=== PATIENT | female | born 1995 | race Asian ===

== ENCOUNTER 2023-11-14 14:52 | Outpatient (REF) | payer MEDICAID, SELFPAY ==
--- NOTE | ~2023-11-14 | US_ITS ---
EXAMINATION: US DIAGNOSTIC ULTRASOUND BREAST, LEFT CLINICAL INFORMATION: 28-year-old female complaining of lateral inferior left breast pain x2 weeks. No significant family history of breast CA. COMPARISON: None available. TECHNIQUE: Ultrasound of the left breast was performed with real-time george scale imaging and color Doppler. Attention to the lateral inferior left breast spanning 2:00 to 8:00 was given in the region of breast pain. FINDINGS: There is no focal suspicious finding. There is no solid mass, architectural abnormality, duct ectasia, or edema in the soft tissue planes. There are no cystic abnormalities. No sonographic correlate to the region left of breast pain. Results are provided to the patient at time of visit by the technologist. US/US breast LT limited mamm only IMPRESSION: No findings suspicious for malignancy. No sonographic correlate to the region of lateral inferior breast pain. Only normal dense fibroglandular tissue is identified. Recommend clinical management. ASSESSMENT: BI-RADS 1 - Negative RECOMMENDATION: 1. Patient should be managed based on the clinical impression. This patient's information was entered into a reminder system with a target due date for their next mammogram.
== END 2023-11-14 14:53 | disposition home or self-care (01) ==
LOC: HO.MAMMO 14:52
PROVIDERS: PCP Pediatrics; Visit Provider Pediatrics
DX: N64.4 Mastodynia (principal)
CPT/HCPCS: 76642

== ENCOUNTER → 2023-11-14 15:00 | Outpatient (BNV) | payer MEDICAID, SELFPAY | PROVIDERS: PCP Pediatrics; Visit Provider Radiology Diagnostic Radiology | DX: N64.4 Mastodynia (principal) | CPT/HCPCS: 76642 ==

== ENCOUNTER 2024-05-18 21:32 | Emergency (ER) | payer MEDICAID, SELFPAY ==
[2024-05-18 22:00] VITALS: BP 104/65; PULSE 82; RESP 14; TEMP 36.8; O2SAT 99; BMI 25.0
[2024-05-18] MEDS: Ibuprofen 600 MG TABLET PO (22:27)
--- NOTE | 2024-05-18 22:29 | ED.EAR ---
HPI - Ear Problem General Chief complaint: Ear Problems Stated complaint: R ear pain, antibiotic not working Time Seen by Provider: 05/18/24 22:23 Source: patient Mode of arrival: ambulatory Limitations: no limitations History of Present Illness ED Provider: Dr. Chely Martinez HPI Narrative: Patient comes to the emergency room complaining of right-sided ear pain. Patient states that she has been taking amoxicillin for almost a week and she is still having discharge and pain. Patient denies fever chills. Patient denies hearing loss. Patient denies swimming. Related Data Previous Rx's ?Medication ?Instructions ?Recorded Lactobacillus rhamnosus GG 15 1 cap PO DAILY #20 caps 05/18/24 billion cell sprinkle capsule (Culturelle) amoxicillin 500 mg-potassium 1 tab PO TID 10 days #30 tabs 05/18/24 clavulanate 125 mg tablet (Augmentin) Allergies Allergy/AdvReac Type Severity Reaction Status Date / Time No Known Allergies Allergy Verified 05/18/24 22:03 [No Known Allergies*] Review of Systems Review of Systems: Constitutional : No Weight loss, No Fever, No Chills, No Night Sweats, No Fatigue, No Malaise ENT/Mouth : No Hearing loss complaining of right-sided Ear Pain with discharge, No Nasal Congestion, No Sinus Pain, No Hoarseness, No sore throat, No Rhinorrhea, No Swallowing Difficulty Eyes: No Eye Pain, No Swelling, No Redness, No Foreign Body, No Discharge, No Vision Changes Cardiovascular : No Chest Pain, No SOB, No Dyspnea on Exertion, No Orthopnea, No Edema, No Palpitations Respiratory : No Cough, No Sputum, No Wheezing, No Smoke Exposure, No Dyspnea Gastrointestinal : No Nausea, No Vomiting, No Diarrhea, No Constipation, No abdominal Pain, No Hematochezia, No Melena Genitourinary : no irregular bleeding, No Dysuria, No Urinary Frequency, No Hematuria, No Urinary Incontinence, No Urgency, No Flank Pain, No Urinary Flow Changes, No Hesitancy Musculoskeletal : No joint pain, No Myalgias, No Joint Swelling Skin : No Skin Lesions, No rash Neuro : No Weakness, No Numbness, No Paresthesias, No Loss of Consciousness, No Dizziness, No Headache Psych : No Anxiety/Panic, No Depression, No SI/HI/AH/VH, No Social Issues, Heme/Lymph: No Bruising, No Bleeding,No Lymphadenopathy Endocrine : No Polyuria, No Polydipsia, No Temperature Intolerance [facility] Social History Social History (System 11/08/23 @ 12:22 by Jelly Conner) Advance Directives: No Advance Directives Information Provided: No Do you have a plan to hurt others: No Plan Physical Exam Vital Signs: Vital Signs: Last Vital Signs Temp 98.3 F 05/18/24 22:00 Pulse 82 05/18/24 22:00 Resp 14 05/18/24 22:00 BP 104/65 05/18/24 22:00 Pulse Ox 99 05/18/24 22:00 O2 Del Method Room Air 05/18/24 22:00 BMI result Body Mass Index 25.0 Const: Other: Appearance: Alert. Oriented X3. No acute distress. Well-appearing Eyes: Pupils equal, round and reactive to light. ENT: Pharynx normal. There is discharge and erythema in the right middle ear, tympanic membrane is not perforated. No mastoid bone tenderness bilaterally Neck: Normal inspection. Neck supple. No lymph nodes noted. No crepitus CVS: Normal heart rate and rhythm. Pulses normal. Normal S1 and S2 Respiratory: No respiratory distress. Breath sounds normal. No Wheezing. No rales Abdomen: Soft and nontender. No rigidity. No distention. Skin: Skin warm and dry. Normal skin color. Normal skin turgor. Extremities: No lower extremity edema. No Lacerations. No Rash Neuro: Oriented X 3. No motor deficit. No sensory deficit. Moving all extremities. No slurred speech. CN 2 through 12 grossly intact Psych: calm, cooperative, normal affect Course Course Course Narrative: I discussed with the patient that the best next step is to change her antibiotic from amoxicillin to Augmentin. Patient no mastoid bone tenderness. No fever chills. Patient declined IM medication for pain. Medical Decision Making Medical Decision Making MDM Narrative: I discussed with the patient that she has still otitis media, 1st dose of Augmentin given in the ED.+ Also, probiotics have been sent to the patient's pharmacy since she is going to be on prolonged treatment with antibiotics. Differential Diagnosis Differential Diagnoses: The differential diagnosis associated with the presentation includes (Otitis media, tympanic membrane rupture, otitis externa, mastoiditis) Discharge Plan Discharge Clinical Impression: Otitis media Patient Disposition: Home, Self-Care Instructions: Ear Infection (ED) Additional Instructions: Please follow-up with your primary care physician tomorrow. If you have any worsening or new symptoms, please return to the emergency room or call 911 Prescriptions: New amoxicillin-pot clavulanate [Augmentin] 500-125 mg tablet 1 tab PO TID 10 Days Qty: 30 0RF Culturelle 15 billion cell capsule, sprinkle 1 cap PO DAILY Qty: 20 0RF Print Language: Sammarinese
[2024-05-18] MEDS: Amoxicillin/Potassium Clav 875 MG TABLET PO (22:30)
[2024-05-18 23:07] VITALS: BP 104/65; PULSE 82; RESP 14; TEMP 36.8; O2SAT 99
== END 2024-05-18 23:07 | disposition home or self-care (01) ==
PROVIDERS: Emergency Provider Emergency Medicine; PCP Pediatrics
DX: H66.91 Otitis media, unspecified, right ear (principal); H92.01 Otalgia, right ear
CPT/HCPCS: 99283

== ENCOUNTER 2024-05-23 13:26 | Emergency (ER) | payer MEDICAID, SELFPAY ==
[2024-05-23 13:35] VITALS: BP 132/90; PULSE 80; RESP 16; TEMP 36.8; O2SAT 99; BMI 25.3
--- NOTE | 2024-05-23 13:36 | ED_ITS ---
HPI - General Adult General Chief complaint: Ear Problems Stated complaint: R Ear Pain Related Data Previous Rx's ?Medication ?Instructions ?Recorded Lactobacillus rhamnosus GG 15 1 cap PO DAILY #20 caps 05/18/24 billion cell sprinkle capsule (Culturelle) amoxicillin 500 mg-potassium 1 tab PO TID 10 days #30 tabs 05/18/24 clavulanate 125 mg tablet (Augmentin) Allergies Allergy/AdvReac Type Severity Reaction Status Date / Time No Known Allergies Allergy Verified 05/23/24 13:37 [No Known Allergies*] [facility] Social History Social History (System 11/08/23 @ 12:22 by Jelly Conner) Advance Directives: No Advance Directives Information Provided: No Do you have a plan to hurt others: No Plan Physical Exam ED Vital Signs: BMI result Body Mass Index 25.3 Course Course Course Narrative: This is a rapid medical exam performed by Sophia Courtney NP: Additional HPI, ROS, PE not included below will be deferred to primary provider. Patient is a 28-year-old female presenting to the ED with complaint of ongoing right ear pain and discharge. She was started on amoxicillin at urgent care and sxs did not improve. Seen here on 05/18 and started on Augmentin. States pain is still 10/10 at times. Discharge Plan Discharge Clinical Impression: Ear pain, right Patient Disposition: Left W/O Completing Treatment Prescriptions: No Action amoxicillin-pot clavulanate [Augmentin] 500-125 mg tablet 1 tab PO TID 10 Days Qty: 30 0RF Culturelle 15 billion cell capsule, sprinkle 1 cap PO DAILY Qty: 20 0RF Discharge Date/Time: 05/23/24 17:13
--- NOTE | 2024-05-23 16:45 | PC.NURSE ---
pt left the ED with their family to go a restaurant to get pizza. they then called the ED asking if their name had been called so they could return to be seen. this was 1 of family of 3 that did this. they were told they would have to check back in as they had left the facility.
== END 2024-05-23 17:13 | disposition left against medical advice (07) ==
PROVIDERS: Emergency Provider Emergency Medicine
DX: H92.01 Otalgia, right ear (principal)
CPT/HCPCS: 99281; 99283

== ENCOUNTER 2024-06-15 18:12 | Emergency (ER) | payer OTHER, SELFPAY ==
[2024-06-15 19:02] VITALS: BP 107/72; PULSE 92; RESP 16; TEMP 36.7; O2SAT 100; BMI 24.8
--- NOTE | 2024-06-15 19:06 | ED_ITS ---
HPI - General Adult General Chief complaint: Ear Problems Stated complaint: Ear pain/sent from Urgent care Related Data Previous Rx's ?Medication ?Instructions ?Recorded Lactobacillus rhamnosus GG 15 1 cap PO DAILY #20 caps 05/18/24 billion cell sprinkle capsule (Culturelle) amoxicillin 500 mg-potassium 1 tab PO TID 10 days #30 tabs 05/18/24 clavulanate 125 mg tablet (Augmentin) Allergies Allergy/AdvReac Type Severity Reaction Status Date / Time No Known Allergies Allergy Verified 06/15/24 19:05 [No Known Allergies*] [facility] Social History Social History (System 11/08/23 @ 12:22 by Jelly Conner) Advance Directives: No Advance Directives Information Provided: No Do you have a plan to hurt others: No Plan Physical Exam ED Vital Signs: BMI result Body Mass Index 24.8 Course Course Course Narrative: RME, this is a rapid medical exam performed by Carlin Rizvi please refer to primary provider for complete H&P- 28-year-old female presents for evaluation of right ear pain. She presents complaining of blood draining from her right ear. She was recently treated for otitis media with Augmentin. She was also given steroid drops for otitis externa. She states that her pain has improved in his currently a 4/10 but she is here today due to drainage from her right ear. On exam her TM is quite edematous and bulging with surrounding erythema. No obvious perforation. There is no mastoid tenderness, pre or postauricular edema. She was sent by urgent Care for ?CT scan and ENT evaluation. I did explain to the patient that we do not have ENT on-call at this facility. Medical Decision Making Lab Data 06/15/24 19:24 06/15/24 19:24 Labs: Lab Results 06/15/24 Range/Units 19:24 WBC 6.0 (4.8-10.8) X10*3/uL RBC 4.59 (4.20-5.50) X10*6/uL Hgb 11.2 L (12.0-16.0) g/dl Hct 34.1 L (37.0-47.0) % MCV 74.3 L (80.0-98.0) fL MCH 24.4 L (27.0-33.0) pg MCHC 32.8 (31.0-35.0) g/dl RDW 14.5 (11.0-16.0) % Plt Count 339 (160-400) X10*3/uL MPV 8.7 L (9.4-12.3) fL Immature Gran % (Auto) 0.3 (0.0-0.4) % Neut % (Auto) 58.2 (45-73) % Lymph % (Auto) 34.8 (20-40) % [place] % (Auto) 5.5 (2-11) % Eos % (Auto) 1.0 (0-4) % Baso % (Auto) 0.2 (0-2) % Lymph # (Auto) 2.1 (1.2-4.9) X10*3/uL [place] # (Auto) 0.3 (0.1-1.2) X10*3/uL Eos # (Auto) 0.1 (0.0-0.4) X10*3/uL Baso # (Auto) 0.0 (0.0-0.2) X10*3/uL Abs Immat Gran (auto) 0.02 (0.00-0.03) X10*3/uL Absolute Neuts (auto) 3.5 (2.0-8.3) x10*3/uL Absolute Nucleated RBC 0.000 (0.0-0.012) X10*3/uL Nucleated RBC % (auto) 0.0 (0.0-0.2) /100WBC Sodium 142 (135-145) mmol/L Potassium 3.2 L (3.3-5.1) mmol/L Chloride 107 (96-108) mmol/L Carbon Dioxide 25 (22-29) mmol/L Anion Gap 13 (12-20) BUN 10 (9-16) mg/dL Creatinine 0.73 (0.5-1.4) mg/dL Estim Creat Clear Calc 104.7 Estimated GFR > 60 Random Glucose 95 (60-115) mg/dL Calcium 8.9 (8.4-10.2) mg/dL Beta HCG, Quant < 2 mIU/mL Discharge Plan Discharge Clinical Impression: Acute ear pain Patient Disposition: Left W/O Completing Treatment Prescriptions: No Action amoxicillin-pot clavulanate [Augmentin] 500-125 mg tablet 1 tab PO TID 10 Days Qty: 30 0RF Culturelle 15 billion cell capsule, sprinkle 1 cap PO DAILY Qty: 20 0RF Interventions: LWBS Worksheet Last Done: 06/15/24 21:17 Discharge Date/Time: 06/15/24 21:17
--- OUTSIDE RECORDS SUMMARY | 2024-06-15 19:24 | XMS_ITS | Clinical Summary ---
Author Organization [employer] [facility] Address [address] [place] [address] [address] [place] [address] Care Team Providers Care Fuse Maker Name Role Phone Unavailable Primary Care Provider Unavailabl e Allergies No known active allergies Social History Tobacco Use Types Packs/Day Years Used Date Smoking Tobacco: Never Passive Smoke Exposure: Never Smokeless Tobacco: Never Tobacco Cessation:Counseling Given: Not Answered Comments Unknown Sex and Gender Information Value Date Recorded Sex Assigned at Female 03/09/2023 2:15 PM EST Legal Sex Female 11:36 AM EDT Gender Identity Female 03/09/2023 2:15 PM EST Sexual Orientation Straight 03/09/2023 2: 15 PM EST Last Filed Vital Signs Vital Sign Reading Time Taken Comments Blood Pressure 110/71 11/04/2023 11:07 AM EDT Pulse 70 11/04/2023 11:07 AM EDT Temperature 36.8 ??C (98.2 ??F) 11/04/2023 11:07 AM E DT Respiratory Rate 16 11/04/2023 11:07 AM EDT Oxygen Saturation 100% 11/04/2023 11:07 AM EDT Inhaled Oxygen Concentration - - Weight 64.4 kg (142 lb) 11/04/2023 11:07 AM EDT Height - - Body Mass Index - - Plan of Treatment Health Maintenance Due Date Last Done Comments Dental Oral Exam 1997 Dental Prophylaxis 1997 Dental X-Ray: Bitewings 1997 Dental X-Ray: Full Mouth 1997 Depression Screening 1997 HIV Screening 1997 SDOH Screening 1997 Alcohol/Substance Use Screening 2009 Family Planning (PISQ) 2012 HPV Vaccines (1 - 3-dose series) 2012 Hepatitis C Screening 2015 DTaP/Tdap/Td Vaccines (1 - Tdap) 2016 Hepatitis B Vaccines (1 of 3 - 19+ 3-dose series) 2016 Pap Smear 2018 COVID-19 Vaccine (1 - 2023-2 5 season) 2024 Influenza Vaccine (#1) 2024 Tobacco Screening 11/03/2024 11/04/2023 Zoster Vaccines (1 of 2) 2047 RSV Patients and Pa tients Aged 60 years or older (1 - 1-dose 75+ series) 2072 HIB Vaccines Aged Out No longer eligi ble based on patient's age to complete this topic Hepatitis A Vaccines Aged Out No long er eligible based on patient's age to complete this topic IPV Vaccines Aged Out No longer eligi ble based on patient's age to complete this topic Meningococcal Vaccine Aged Out No sherman yomi eligible based on patient's age to complete this topic Pneumococcal Vaccine: Pediat rics (0 to 5 Years) and At-Risk Patients (6 to 49) Years) Aged Out No longer elig ible based on patient's age to complete this topic RSV under 20 months Aged Out No longe r eligible based on patient's age to complete this topic Rotavirus Vaccines Aged Out No longer eligible based on patient's age to complete this topic Insurance [facility] [place]
--- OUTSIDE RECORDS SUMMARY | 2024-06-15 19:24 | XMS_ITS | Encounter Summary ---
Author Organization [facility] Address [address] [place] [address] Care Team Providers Care Industrial Real Estate Agent Name Role Phone Unavailable Primary Care Provider Unavailabl e Encounter Details Date Type Department Care Team (Late st Contact Info) Description 05/29/2024 3:40 PM EST Office Visit [facility] [address] [place] [phone] Elliott Thomas, [facility] [address] [place], [place] [id number] Retained tooth root (Primary Dx); Caries Social History Tobacco Use Types Packs/Day Years Used Date Smoking Tobacco: Never Assessed Social Connections Answer Date Recorded Connectedness 0 03/22/2024 Financial Resource Strain Answer Date R ecorded Financial Resource Strain 0 2023 Stress Answer Date Recorded Stress 0 03/22/2024 Physical Activity Answer Date Recorded Physical Activity 0 03/22/2024 Food Insecurity Answer Date Recorded Food 0 03/22/2024 Transportation Needs Answer Date Record ed Transportation 0 03/22/2024 Housing Stability Answer Date Recorded Housing 0 03/22/2024 Safety and Environment Answer Date Alber rded Safety 0 03/22/2024 Utilities Answer Date Recorded Utilities 0 03/22/2024 Employment Answer Date Recorded Stress 0 03/22/2024 Comments Unknown Sex and Gender Information Value Date Recorded Sex Assigned at Not on file Legal Sex Female 11:56 AM PST Gender Identity Not on file Sexual Orientation Not on file documented as of this encounter Progress Notes * Elliott Thomas RD - 05/29/2024 3:59 PM EST Prophy, FMX, Exam - Adult Subjective Oralia Shaffer, 28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 Machine Buffer: No No chief complaint on file. Objective RMHx: Yes Vitals: There were no vitals filed for this visit. Assessment EOE/IOE/Oral Cancer Screen: WNL OH: Good Fluoride exposure: toothpaste Home Care: Toothbrush 1 x per day, Floss 1 x per day Plaque: Generalized Moderate Calculus: Generalized Severe Bone Loss: None PSR: Yes Periodontal Screening OHI & Nutrition counseling provided, discussed: Gingivitis, Proper brushing technique, Proper flossing technique, [place] more along the gumline, [place] more on posteriors, Increase flossing to onceper day Occlusion: N/A. Class I R & L. Overbite WNL. Overjet WNL. TMJ: WNL Caries Risk Assessment: Auto calculated Risk Score: high risk Dx: K08.3 Retained tooth root (primary encounter diagnosis) K02.9 Caries Dx Details (Clinical Decision Making): Plan Ext #1,19,30 Comp filling #2 Rct/[place] #5,7,9 Informed Consent/PARQ (Procedure, Alternatives, Risks, Questions): Discussed exam findings and treatment needs, questions answered. Patient confirms informed consent using PARQ, verbalizes understanding of exam findings and treatment plan. Dental procedures in this visit D9450 - CASE PRESENTATION SUBS DTL & EXTENSIVE TX PLN (Completed) Service provider: Elliott Thomas RDH Billing provider: Jovan Patterson DDS [id number] - ORAL CANCER SCREENING (Completed) Service provider: Elliott Thomas RDH Billing provider: Jovan Patterson DDS [id number] - ORAL HYGIENE INSTRUCTIONS (Completed) Service provider: Elliott Thomas RDH Billing provider: Jovan Patterson DDS [id number] - NUTRITIONAL COUNSELING CONTROL OF DENTAL DISEASE (Completed) Service provider: Elliott Thomas RDH Billing provider: Jovan Patterson DDS D0603 - CARIES RISK ASSESSMENT & DOC FINDING HIGH RISK (Completed) Service provider: Elliott Thomas RDH Billing provider: Jovan Patterson DDS [id number] - COMP ORAL EVALUATION - NEW/ESTABLISHED PATIENT (Completed) Service provider: Elliott Thomas RDH Billing provider: Jovan Patterson DDS [id number] - INTRAORAL - COMP SERIES OF RADIOGRAPHIC IMAGES (Completed) Service provider: Elliott Thomas RDH Billing provider: Jovan Patterson DDS [id number] - PROPHYLAXIS - ADULT (Completed) Service provider: Elliott Thomas RDH Billing provider: Jovan Patterson DDS [id number] - DENTAL CASE MANAGEMENT - MOTIVATIONAL INTV (Completed) Service provider: Elliott Thomas RDH Billing provider: Jovan Patterson DDS Referrals: No orders of the following type(s) were placed in this encounter: Referral. Rx: No orders of the defined types were placed in this encounter. Behavior: Excellent Prophy completed via ultrasonic, handscale, singaporean and floss NV: Treatment - Extraction, Restorative, and RCT Elliott Thomas RDH documented in this encounter Miscellaneous Notes * Patient Instructions - Elliott Thomas RDH - 05/29/2024 4:36 PM EST If you are not able to keep your appointment please call 24-48 hours before your appointment to cancel or reschedule. documented in this encounter Plan of Treatment Upcoming Encounters Date Type Department Care Team (Late st Contact Info) Description 07/06/2024 10:30 AM EST Office Visit [facility] [address] [place] [phone] Carla Herrera, DMD [address] [place] [address] 07/27/2024 10:00 AM EDT Office Visit [facility] [address] [place] [phone] Ilir Baldwin, [facility] [address] [place] [id number] 08/10/2024 10:00 AM EDT Office Visit [facility] [address] [place] [phone] Dalton Loza, [address] [address] 11/27/2024 4:00 PM EDT Office Visit [facility] [address] [place] [phone] Elliott Thomas, [facility] [address] [place] [address] Scheduled Orders Name Type Priority Associated Diagnoses Order Schedule 1 EXTRACTION ERUPTED TOOTH OR EXPOSED ROOT Dental Procedures Routine 1 Occurr ences starting 05/29/2024 30 EXTRACTION ERUPTED TOOTH OR EXPOSED ROOT Dental Procedures Routine 1 Occurr ences starting 05/29/2024 2 O RESIN-BASED COMPOSITE - ONE SURFACE POSTERIOR Dental Procedures Routine 1 Occurrence s starting 05/29/2024 19 EXTRACTION ERUPTED TOOTH OR EXPOSED ROOT Dental Procedures Routine 1 Occurr ences starting 05/29/2024 7 ENDODONTIC THERAPY ANTERIOR TOOTH Dental Procedures Routine 1 Occurrences starting 05/29/2024 9 ENDODONTIC THERAPY ANTERIOR TOOTH Dental Procedures Routine 1 Occurrences starting 05/29/2024 5 ENDODONTIC THERAPY PREMOLAR TOOTH Dental Procedures Routine 1 Occurrences starting 05/29/2024 7 CROWN - PORCELAIN FUSED PREDOMINANTLY BASE METAL Dental Procedures Routine 1 Occurrences starting 05/29/2024 9 CROWN - PORCELAIN FUSED PREDOMINANTLY BASE METAL Dental Procedures Routine 1 Occurrences starting 05/29/2024 5 CROWN - PORCELAIN FUSED PREDOMINANTLY BASE METAL Dental Procedures Routine 1 Occurrences starting 05/29/2024 documented as of this encounter Procedures Procedure Name Priority Date/Time Associated Diagnosis Comments ORAL CANCER SCREENING Routine 05/29/2024 3:40 PM EST Retained tooth root Caries DENTAL CASE MANAGEMENT - MOTIVATIONAL INTV Routine 05/29/2024 3:40 PM EST Retained tooth root Caries CARIES RISK ASSESSMENT & DOC FINDING HIGH RISK Routine 05/29/2024 3:40 PM EST Retained tooth root Caries CASE PRESENTATION SUBS DTL & EXTENSIVE TX PLN Routine 05/29/2024 3:40 PM EST Retained tooth root Caries ORAL HYGIENE INSTRUCTIONS Routine 05/29/2024 3:40 PM EST Retained tooth root Caries NUTRITIONAL COUNSELING CONTROL OF DENTAL DISEASE Routine 05/29/2024 3:40 PM EST Retained tooth root Caries PROPHYLAXIS - ADULT Routine 05/29/2024 3 :40 PM EST Retained tooth root Caries INTRAORAL - COMP SERIES OF RADIOGRAPHIC IMAGES Routine 05/29/2024 3:40 PM EST Retained tooth root Caries COMP ORAL EVALUATION - NEW/ESTABLISHED PATIENT Routine 05/29/2024 3:40 PM EST Retained tooth root Caries 31 MO COMPOSITE - WISDOM (NON BILLABLE) Routine 05/29/2024 12:00 AM EST 29 DO COMPOSITE - WISDOM (NON BILLABLE) Routine 05/29/2024 12:00 AM EST 15 LO COMPOSITE - WISDOM (NON BILLABLE) Routine 05/29/2024 12:00 AM EST 14 MODL COMPOSITE - WISDOM (NON BILLABLE) Routine 05/29/2024 12:00 AM EST 5 DO COMPOSITE - WISDOM (NON BILLABLE) Routine 05/29/2024 12:00 AM EST 4 MOD COMPOSITE - WISDOM (NON BILLABLE) Routine 05/29/2024 12:00 AM EST 3 MOL COMPOSITE - WISDOM (NON BILLABLE) Routine 05/29/2024 12:00 AM EST documented in this encounter Visit Diagnoses Diagnosis Retained tooth root- Primary Retained dental root Caries Unspecified dental caries documented in this encounter
[2024-06-15 19:30] LABS: MANUAL DIFF FLAG NO
[2024-06-15 19:32] LABS: Basophils Percent Auto 0.2 % (0-2); Eosinophils Absolute Auto 0.1 X10*3/uL (0.0-0.4); Hematocrit 34.1 % (37.0-47.0); Hemoglobin 11.2 g/dl (12.0-16.0); Imm Gran Abs Auto 0.02 X10*3/uL (0.00-0.03); Imm Gran Pct Auto 0.3 % (0.0-0.4); Lymphocytes Absolute Auto 2.1 X10*3/uL (1.2-4.9); Lymphocytes Percent Auto 34.8 % (20-40); Mean Corpuscular HGB Conc 32.8 g/dl (31.0-35.0); Mean Corpuscular Hemoglobin 24.4 pg (27.0-33.0); Mean Corpuscular Volume 74.3 fL (80.0-98.0); Mean Platelet Volume 8.7 fL (9.4-12.3); Monocytes Absolute Auto 0.3 X10*3/uL (0.1-1.2); Monocytes Percent Auto 5.5 % (2-11); Neutrophils Absolute Auto 3.5 x10*3/uL (2.0-8.3); Neutrophils Percent Auto 58.2 % (45-73); Platelet Count 339 X10*3/uL (160-400); Red Blood Count 4.59 X10*6/uL (4.20-5.50); Red Cell Distribution Width 14.5 % (11.0-16.0)
[2024-06-15 19:54] LABS: Anion Gap 13 (12-20); Blood Urea Nitrogen 10 mg/dL (9-16); Calcium 8.9 mg/dL (8.4-10.2); Carbon Dioxide 25 mmol/L (22-29); Chloride 107 mmol/L (96-108); Creatinine Clr Calc Pharmacy 104.7; Estimated Glomerular Filt Rate > 60; Glucose Random 95 mg/dL (60-115); Potassium 3.2 mmol/L (3.3-5.1); Sodium 142 mmol/L (135-145)
[2024-06-15 19:57] LABS: HCG Quantitative < 2 mIU/mL
== END 2024-06-15 21:17 | disposition left against medical advice (07) ==
PROVIDERS: Physician Assistant; Emergency Provider Emergency Medicine
DX: H92.01 Otalgia, right ear (principal)
CPT/HCPCS: 36415; 80048; 84702; 85025; 99281; 99283